=== PATIENT | female | born 1995 | race Hispanic/Latino ===

== ENCOUNTER 2018-07-27 17:11 | Emergency (ER) | payer SELFPAY ==
--- NOTE | 2018-07-27 18:28 | EDPHYS ---
Physician Documentation [facility] Name: Janessa Jackson Age: 23 yrs Sex: Female : 1995 Arrival Date: 07/27/2018 Time: 17:15 Bed Treatment Private MD: ED Physician Kashmir Mark HPI: 07/27 18:18 This 23 yrs old Female presents to ER via Ambulatory with complaints of Facial rn pain 26 wks . 18:18 The patient presents with pain. The problem is located in the mouth. Onset: The rn symptoms/episode began/occurred 2 day(s) ago. Duration: The symptoms are continuous. Modifying factors: The symptoms are alleviated by nothing, the symptoms are aggravated by nothing. Severity of symptoms: At their worst the symptoms were moderate, in the emergency department the symptoms are unchanged. The patient has experienced similar episodes in the past. Reports pain to right tooth #2, has had cap there, aches and radiates to jaw, no trauma, no fever, no drainage, seen by dentist and told there was nothing they could do. . CAREER ADVISOR: 18:43 Verified ls4 Historical: - Allergies: 17:38 No Known Allergies; ch - PMHx: 17:38 None; ch - Immunization history:: Adult Immunizations up to date, Flu vaccine is not up to date. - Social history:: Smoking status: Patient/guardian denies using tobacco. - Ebola Screening: : Patient negative for fever greater than or equal to 101.5 degrees Fahrenheit, and additional compatible Ebola Virus Disease symptoms Patient denies exposure to infectious person Patient denies travel to an Ebola-affected area in the 21 days before illness onset No symptoms or risks identified at this time. - Family history:: not pertinent. - Hospitalizations: : No recent hospitalization is reported. ROS: 18:18 Constitutional: Negative for fever, chills, and weight loss, Eyes: Negative for injury, rn pain, redness, and discharge, ENT: + toothache Neck: Negative for injury, pain, and swelling, Neuro: Negative for headache, weakness, numbness, tingling, and seizure. Vital Signs: 17:38 BP 107 / 70; Pulse 77; Resp 16; Temp 98.3; Pulse Ox 99% on R/A; Weight 66.68 kg; Height ch 5 ft. 2 in. (157.48 cm); Pain 8/10; 17:38 Body Mass Index 26.89 (66.68 kg, 157.48 cm) [facility]: 18:15 Patient medically screened. rn 18:26 Differential diagnosis: dental caries, dental abscess. Data reviewed: vital signs, rn nurses notes, and as a result, I will discharge patient. Counseling: I had a detailed discussion with the patient and/or guardian regarding: the historical points, exam findings, and any diagnostic results supporting the discharge/admit diagnosis, the need for outpatient follow up, to return to the emergency department if symptoms worsen or persist or if there are any questions or concerns that arise at home. Special discussion: I discussed with the patient/guardian in detail that at this point there is no indication for admission to the hospital. It is understood, however, that if the symptoms persist or worsen the patient needs to return immediately for re-evaluation. Based on the history and exam findings, there is no indication for further emergent testing or inpatient evaluation. I discussed with the patient/guardian the need to see a dentist for further evaluation of the symptoms. ED course: Has been taking tylenol without relief, will give single dose of norco, and abx. Administered Medications: 18:30 Drug: [place] 10 mg-325 mg 1 tabs Route: PO; ls4 18:44 Follow up: Response: No adverse reaction; Marked relief of symptoms ls4 Disposition: 07/27/18 18:27 Discharged to Home. Impression: Dentalgia. - Condition is Stable. - Discharge Instructions: Dental Pain. - Prescriptions for Keflex 500 mg Oral Capsule - take 1 capsule by ORAL route every 12 hours for 10 days; 20 capsule. - Medication Reconciliation Form, Thank You Letter, Antibiotic Education, Prescription Opioid Use form. - Follow up: Private Physician; When: As needed; Reason: Recheck today's complaints, Re-evaluation by your physician. - Problem is new. - Symptoms have improved. Signatures: Mago Funes RN RN Kashmir Mark MD MD rn Stewart, Lisa, RN RN ls4 Corrections: (The following items were deleted from the chart) 18:45 18:27 07/27/2018 18:27 Discharged to Home. Impression: Dentalgia. Condition is Stable. ls4 Forms are Medication Reconciliation Form, Thank You Letter, Antibiotic Education, Prescription Opioid Use. Follow up: Private Physician; When: As needed; Reason: Recheck today's complaints, Re-evaluation by your physician. Problem is new. Symptoms have improved. rn
--- NOTE | 2018-07-27 18:28 | ER ---
Nurse's Notes [facility] Name: Janessa Jackson Age: 23 yrs Sex: Female : 1995 Arrival Date: 07/27/2018 Time: 17:15 Bed Treatment Private MD: Diagnosis: Dentalgia Presentation: 07/27 17:37 Presenting complaint: Patient states: pain to R jaw, started two days ago. taking tylenol. Transition of care: patient was not received from another setting of care. Onset of symptoms was July 25, 2018. Risk Assessment: Do you want to hurt yourself or someone else? Patient reports no desire to harm self or others. Initial Sepsis Screen: Does the patient meet any 2 criteria? No. Patient's initial sepsis screen is negative. Does the patient have a suspected source of infection? No. Patient's initial sepsis screen is negative. Care prior to arrival: None. 17:37 Method Of Arrival: Ambulatory 17:37 Acuity: RYDER 5 17:38 Presenting complaint: Patient states: . Triage Assessment: 17:38 General: Appears in no apparent distress. comfortable. 18:43 General: Behavior is calm, cooperative. ls4 GREY WASHER: 18:43 Verified ls4 Historical: - Allergies: 17:38 No Known Allergies; - PMHx: 17:38 None; - Immunization history:: Adult Immunizations up to date, Flu vaccine is not up to date. - Social history:: Smoking status: Patient/guardian denies using tobacco. - Ebola Screening: : Patient negative for fever greater than or equal to 101.5 degrees Fahrenheit, and additional compatible Ebola Virus Disease symptoms Patient denies exposure to infectious person Patient denies travel to an Ebola-affected area in the 21 days before illness onset No symptoms or risks identified at this time. - Family history:: not pertinent. - Hospitalizations: : No recent hospitalization is reported. Screenin:52 Abuse screen: Denies threats or abuse. Denies injuries from another. Nutritional ls4 screening: No deficits noted. Tuberculosis screening: No symptoms or risk factors identified. Fall Risk None identified. Assessment: 17:40 General: Appears in no apparent distress. ls4 17:40 Pain: Complains of pain in mouth Pain currently is 8 out of 10 on a pain scale. Neuro: ls4 No deficits noted. Cardiovascular: No deficits noted. Respiratory: Airway is patent Respiratory effort is even, unlabored, Respiratory pattern is regular. Vital Signs: 17:38 BP 107 / 70; Pulse 77; Resp 16; Temp 98.3; Pulse Ox 99% on R/A; Weight 66.68 kg; Height 5 ft. 2 in. (157.48 cm); Pain 8/10; 17:38 Body Mass Index 26.89 (66.68 kg, 157.48 cm) ED Course: 17:15 Patient arrived in ED. mr 17:38 Triage completed. 17:38 Arm band placed on right wrist. Patient placed in an exam room, on a stretcher. 17:40 Patient has correct armband on for positive identification. Placed in gown. Bed in low ls4 position. Call light in reach. Side rails up X 1. 17:51 Leyda De Leon, JACQUELINE is Primary Nurse. ls4 18:15 Kashmir Mark MD is Attending Physician. rn 18:42 No provider procedures requiring assistance completed. Patient did not have IV access ls4 during this emergency room visit. Administered Medications: 18:30 Drug: [place] 10 mg-325 mg 1 tabs Route: PO; ls4 18:44 Follow up: Response: No adverse reaction; Marked relief of symptoms ls4 Outcome: 18:27 Discharge ordered by . rn 18:44 Discharged to home ambulatory, with family. ls4 18:44 Condition: stable 18:44 Discharge instructions given to patient, family, Instructed on discharge instructions, follow up and referral plans. medication usage, Demonstrated understanding of instructions, follow-up care, medications, Prescriptions given X 1. 18:45 Patient left the ED. ls4 Signatures: Mago Funes, RN JACQUELINE Loni Garrido Kashmir Mark MD MD rn Stewart, Lisa, RN RN ls4
[2018-07-27] MEDS ORDERED: HYDROCODONE/APAP 10/325 TAB ONE (18:39)
== END 2018-07-27 18:45 | disposition home or self-care (01) ==
LOC: ER 17:11
DX: O99.612 Diseases of the digestive system complicating pregnancy, second trimester (principal); K08.89 Other specified disorders of teeth and supporting structures; Z3A.26 26 weeks gestation of pregnancy
CPT/HCPCS: 99283